=== PATIENT | male | born 1965 | race Caucasian/White ===

== ENCOUNTER → 2019-01-15 10:19 | Outpatient (CLI) | payer OTHER, SELFPAY ==
--- NOTE | 2019-01-15 | DI.RAD.S_ITS ---
PROCEDURE: XR CHEST 2V INDICATIONS: Chest Pain TECHNIQUE: 2 views of the chest were acquired. COMPARISON: None. FINDINGS: Surgical changes and devices: None. Lungs and pleura: Lungs are clear. No pleural effusions or pneumothorax. Mediastinum: Mediastinal contours are normal. Heart size is normal. Bones and chest wall: No suspicious bony abnormalities. Soft tissues appear unremarkable. IMPRESSION: No acute disease Dictated by: Marek Hernández M.D. on 01/15/2019 at 13:33 Approved by: Marek Hernández M.D. on 01/15/2019 at 13:33
== END ==
PROVIDERS: Visit Provider Nurse Practitioner Family
DX: R07.9 Chest pain, unspecified (principal)
CPT/HCPCS: 71046

== ENCOUNTER → 2019-03-13 07:18 | Outpatient (CLI) | payer OTHER, SELFPAY ==
--- NOTE | 2019-03-13 | DI.ECHO.S_ITS ---
[facility]---------+ [facility] +---------+ : : [address] : [address] : : : : [id number] : : : : Phone: [phone]+ Echocardiogram Report + + :Name: STEPHAN SALAMANCA Study Date: 03/13/2019 Height: 69 in : :[facility] Weight: 190 lb : : Gender: Male BSA: 2.0 m2 : :: 1965 Age: 53 yrs BP: 114/80 mmHg: :Reason For Study: Chest pain : : Performed By: Melissa Leach : :Referring: REYNALDO CHARLES : + + Interpretation Summary Normal sinus rhythm. Normal LV size, wall thickness, wall motion and LV systolic function. EF is 60-65%. Normal chamber sizes. No significant valvular abnormalities. No prior study available for comparison. Procedure: A two-dimensional transthoracic echocardiogram with color flow and Doppler was performed. The study quality was technically good. There is no prior echocardiogram noted for this patient. The patient was in normal sinus rhythm during the exam. Left Ventricle: The left ventricle is normal in size, wall thickness, and systolic function without any focal wall motion abnormalities. The ejection fraction is estimated to be 60-65%. Diastolic parameters suggest probable normal left ventricular diastolic function and normal filling pressures. Right Ventricle: The right ventricle grossly appears normal in size with probable normal systolic function. Atria: The left atrial size is normal. Right atrial size is normal. The interatrial septum is intact with no evidence for an atrial septal defect. Mitral Valve: The mitral valve is normal in structure and function. There is no mitral regurgitation noted. Aortic Valve: The aortic valve is trileaflet. The aortic valve opens well. No aortic regurgitation is present. Tricuspid Valve: The tricuspid valve is normal in structure and function. There is trace tricuspid regurgitation. The right ventricular systolic pressure is estimated to be at least 21 mmHg based on an estimated right atrial pressure of 3 mm Hg. Pulmonic Valve: The pulmonic valve is not well seen, but is grossly normal. There is trace pulmonic regurgitation. Great Vessels: The aortic root is normal size. The aortic arch is normal in size. The IVC is of normal diameter and collapses greater than 50% with a sniff. This suggests a low right atrial pressure of 3 mm Hg. Pericardium/ Pleura There is no pericardial effusion. There is no pleural effusion. MMode/2D Measurements & Calculations LVIDd: 4.9 cm Ao root diam: 3.2 cm LVIDs: 3.4 cm Aortic Jxn: 2.8 cm FS: 32.0 % Ao Arch Diam (Prox Trans): 3.0 cm EPSS: 0.40 cm IVSd: 0.94 cm LVPWd: 0.87 cm LV hartley. diameter/BSA (cm/m^2): 2.4 LV sys. diameter/BSA (cm/m^2): 1.7 LA dimension: 4.1 cm RA long axis: 5.2 cm LA A2 area: 23.1 cm2 RA area: 19.8 cm2 LA A4 area: 18.4 cm2 RA vol: 64.2 ml LA length (vol): 5.5 cm RA : 31.8 ml/m2 LA vol: 66.3 ml IVC diam: 1.8 cm LA vol index: 32.8 ml/m2 RVDd major: 5.7 cm RVD1 (basal): 3.7 cm RVD2 (mid): 2.9 cm Doppler Measurements & Calculations Ao V2 max: 145.2 cm/sec MV E max sanjiv: 64.2 cm/sec Ao V2 mean: 92.6 cm/sec MV A max sanjiv: 56.8 cm/sec Ao max P.4 mmHg MV E/A: 1.1 Ao mean P.1 mmHg Med Peak E' Sanjiv: 7.2 cm/sec Ao V2 VTI: 30.3 cm E/E' med: 9.0 Lat Peak E' Sanjiv: 11.8 cm/sec E/E' lat: 5.4 E/e' average: 7.2 MV dec time: 0.20 sec MV P1/2t: 58.3 msec TR max sanjiv: 210.0 cm/sec MV P1/2t max asnjiv: 63.9 cm/sec TR max P.6 mmHg MVA(P1/2t): 3.8 cm2 PA V2 max: 76.8 cm/sec PA V2 mean: 58.2 cm/sec PA mean P.5 mmHg PA Accel Time: 0.16 sec Electronically signed by: Geovanna Anderson M.D. on Reading Physician:03/16/2019 12:35 AM
--- NOTE | 2019-03-13 08:51 | PM.TREADMILL ---
Cardiac Stress Test Report Referral & Results Date Patient Seen: 03/13/19 Time Patient Seen: 08:30 Requesting provider: Monica Fitzpatrick Indication: Chest pain Rest ECG: NSR Procedure Note: Today following both written and verbal informed consent, the patient was exercised according to a standard Mychal protocol. The patient exercised for a total of 12 minutes achieving a maximum heart rate of 149. Patient's maximum systolic blood pressure was 200. This was an estimated 12.8 MET's. IVON-20% on the active scale. No EKG changes and no symptoms. Impression: Low probability for ischemia. Younger treadmill score of 7 indicates 5 year survival of 97%. Please note: Actual ECG tracings can be found in the PACS system.
== END ==
PROVIDERS: PCP Nurse Practitioner Family; Visit Provider Nurse Practitioner Family
DX: R07.89 Other chest pain (principal)
CPT/HCPCS: 93016; 93017; 93018; 93306

== ENCOUNTER → 2020-06-07 15:05 | Outpatient (CLI) | payer BC, SELFPAY ==
[2020-06-09 08:43] LABS: COVID19 Sendout Not Detected (Not Detect)
== END ==
PROVIDERS: PCP Nurse Practitioner Family; Visit Provider Physician Assistant
DX: Z11.59 Encounter for screening for other viral diseases (principal)
CPT/HCPCS: 87635

== ENCOUNTER 2020-06-10 12:58 | Day surgery (SDC) | payer BC, SELFPAY ==
--- NOTE | 2020-06-10 11:45 | PM.HP.1 ---
History of Present Illness History of Present Illness Date Patient Seen: 06/10/20 Chief complaint: [facility] [place] Narrative: 54 Years Old Male seen today for consideration of a screening colonoscopy. There have been no lower GI symptoms suggesting disease such as change in bowel habits, bleeding, abdominal pain or anemia. There's been no family history of colon cancer or colon polyps. Overall health issues have been stable, including no major cardiac events for at least 6 weeks. Current Medications: None Allergies: No Known Drug Allergies Past Medical History: Reviewed history from 10/24/2018 and no changes required: Broken leg age 18 - unsure of side Head Injuries - concussion due to [employer] in college Past Surgical History: Reviewed history from 03/10/2020 and no changes required: appendectomy - age 18 Family History: Reviewed history from 10/24/2018 and no changes required: Father: b 1942 Mother: b 194 Siblings: 1 brother - living 1 sister b 1968 - JRA dx 20yo No CA, coronary artery disease, DM Social History: Reviewed history from 03/10/2020 and no changes required: 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 Children: 4, 2 boys and 2 girls (all grown) 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 HEENT: Head normocephalic/atraumatic. Pupils equal, round, and reactive to light and accomodation. Extraocular muscles intact. Tympanic membranes clear. Nasal mucosa moist, septum midline. Oral mucosa moist, no lesions. Neck soft and supple, no lymphadenopathy. LUNGS: Clear to ausculation bilaterally, no wheezes, rhonchi or rales. CV: Normal S1 and S2 with regular rate and rhythm, no audible murmurs, rubs or gallops. ABDOMEN: Soft, non-tender, non-distended, no organomegaly. Positive bowel sounds. EXTREMITIES: No clubbing, cyanosis, or edema. NEURO: Cranial nerves II through XII grossly intact, no focal deficits. PSYCH: Alert and oriented x 3. SKIN: No concerning lesions. Assessment & Plan Assessment & Plan narrative: 1. Screening for colon cancer Plan for colonoscopy. The nature and character of the procedure as well as anticipated results were discussed. The possibility of not completing the procedure was also discussed. Possible complications including aspiration pneumonia, bleeding, perforation and reaction to medications either for sedation or preparation and missed lesions were discussed. Questions were answered and proceeding to the colonoscopy was elected. Informed consent signed.
--- NOTE | 2020-06-10 11:47 | PM.OP.ENDO ---
Operative Date/Time/Diagnoses Date of procedure: 06/10/20 Procedure Notes SCOAP/Timeout: 2:36 p.m. Procedure in detail: ENDOSCOPIST: Cat Sheehan MD Sedation RN: Kassidy Ellis RN Sedation start time: 13:47 Sedation end time: 14:09 PROCEDURE: Colonoscopy INDICATIONS: 1. Screening for colon cancer MEDICATION: Levsin 0.125 mg sublingual, incremental doses of Versed and fentanyl until appropriate level sedation achieved. ASA CLASS: 1 CECAL WITHDRAWAL TIME: 14 minutes COMPLICATIONS: None. EXTENT OF PROCEDURE: Cecum. QUALITY OF PREP: Good with portions of liquid stool. PROCEDURE: Prior to insertion of the colonoscope, a digital rectal examination was accomplished with circumferential palpation of the distal rectal mucosa without significant findings being noted. The high-definition colonoscope was passed into the rectum in the usual fashion and advanced over to the cecum without difficulty. The ileocecal valve, appendiceal stoma, and medial wall all could be inspected and no abnormalities were seen. ASCENDING COLON: As the colonoscope was withdrawn, care was taken to expose and inspect the haustral folds and no abnormalities were seen. HEPATIC FLEXURE: Normal, no polyps, diverticula or other abnormalities. TRANSVERSE COLON: Normal, no polyps, diverticula or other abnormalities. DESCENDING COLON: Normal, no polyps, diverticula or other abnormalities. SIGMOID COLON: Normal, no polyps, diverticula or other abnormalities. RECTUM: Normal. J maneuver was produced. There was no significant perianal disease. The J maneuver was broken. The remainder of the rectum was inspected and there was no external hemorrhoid disease. The scope was withdrawn. IMPRESSION: 1. Normal colonoscopy PLAN: 1. Repeat colonoscopy in 10 years. The possibility of a missed lesion including a malignancy has been discussed with the patient previously. Potential alarm symptoms have been discussed and should be reported immediately.
[2020-06-10] MEDS: LACTATED RINGERS 1,000 ML 200 ML IV (13:22)
[2020-06-10 13:25] VITALS: BP 135/88; PULSE 61; RESP 18; O2SAT 97; BMI 28.0
[2020-06-10] MEDS: HYOSCYAMINE 0.125 MG TABLET PO (13:25)
[2020-06-10] MEDS: MIDAZOLAM 5 MG/5 ML VIAL IV (13:47)
[2020-06-10] MEDS: fentaNYL 250 MCG/5 ML INJ IV (13:47)
[2020-06-10 14:12] VITALS: BP 133/89; PULSE 59; RESP 12; TEMP 36.4; O2SAT 94
[2020-06-10 14:17] VITALS: BP 114/81; PULSE 60; RESP 13; O2SAT 93
[2020-06-10 14:22] VITALS: BP 116/84; PULSE 58; RESP 12; O2SAT 93
[2020-06-10 14:29] VITALS: BP 114/82; PULSE 59; RESP 12; TEMP 36.4; O2SAT 94
[2020-06-10 14:40] VITALS: BP 114/64; PULSE 59; RESP 12; O2SAT 95
== END 2020-06-10 14:45 | disposition home or self-care (01) ==
PROVIDERS: PCP Student in an Organized Health Care Education/Training Program; Referring Provider Student in an Organized Health Care Education/Training Program; Visit Provider Student in an Organized Health Care Education/Training Program
PROC: 0DJD8ZZ Inspection of Lower Intestinal Tract, Via Natural or Artificial Opening Endoscopic (ICD-10-PCS; CPT 45378; principal; 2020-06-10 13:45)
DX: Z12.11 Encounter for screening for malignant neoplasm of colon (principal)
CPT/HCPCS: 45378; J2250; J3010